=== PATIENT | female | born 1965 | race Caucasian/White ===

== ENCOUNTER 2024-06-05 13:22 | Inpatient (IN) | payer MEDICARE ==
--- NOTE | 2024-06-05 16:03 | ED ---
General Adult HPI - General Chief complaint: Psychiatric Symptoms Stated complaint: Mental health eval Time Seen by Provider: 06/05/24 16:01 Source: patient Mode of arrival: ambulatory Limitations: no limitations - History of Present Illness Initial comments: Dictation was produced using [employer] dictation software. please excuse any grammatical, word or spelling errors. Chief Complaint: 58-year-old female presents to the emergency department depression and suicidal ideation History of Present Illness: Patient is 58-year-old female has had history of depression. States that she has been having a lot of changes to her depression treatment. States that she feels like she is steadily getting worse causing her to contemplate suicide. She denies any specific plan denies any homicidal ideation. No visual auditory hallucination. Denies any feelings of paranoia. Patient denies any physical complaints at this time The ROS documented in this emergency department record has been reviewed and confirmed by me. Those systems with pertinent positive or negative responses have been documented in the HPI. All other systems are other negative and/or noncontributory. - Related Data Home Medications Medication Instructions Recorded Confirmed Ibuprofen [Motrin Ib] 800 mg PO Q8H PRN 06/05/24 06/05/24 buPROPion XL [Wellbutrin XL] 150 mg PO DAILY 06/05/24 06/05/24 Allergies Allergy/AdvReac Type Severity Reaction Status Date / Time Sulfa (Sulfonamide Allergy Rash/Hives Verified 06/05/24 19:11 Antibiotics) Review of Systems ROS Statement: Those systems with pertinent positive or pertinent negative responses have been documented in the HPI. ROS Other: All systems not noted in ROS Statement are negative. Past Medical History Past Medical History: Rheumatoid Arthritis (RA) History of Any Multi-Drug Resistant Organisms: None Reported Past Surgical History: No Surgical Hx Reported Past Psychological History: Anxiety, Depression Smoking Status: Never smoker Past Alcohol Use History: None Reported Past Drug Use History: None Reported General Exam - General Exam Comments Initial Comments: General: Well-appearing, nontoxic, no acute distress. Head: Normocephalic, atraumatic Eyes: PERRLA, EOMI ENT: Airway patent Chest: Nonlabored breathing Skin: No visual rash, normal skin tone Neuro: Alert and oriented 3 Musculoskeletal: No gross abnormalities Limitations: no limitations Course Vital Signs 06/05/24 13:29 Temperature 98.2 F Pulse Rate 99 Respiratory 20 Rate Blood Pressure 156/103 O2 Sat by Pulse 96 Oximetry Medical Decision Making - Medical Decision Making Was pt. sent in by a medical professional or institution (, PA, SENIOR QUALITY CONTROL INSPECTOR, urgent care, hospital, or [facility]...) When possible be specific @ -No Did you speak to anyone other than the patient for history (EMS, parent, family, police, friend...)? What history was obtained from this source @ -No Did you review nursing and triage notes (agree or disagree)? Why? @ -I reviewed and agree with nursing and triage notes Were old charts reviewed (outside hosp., previous admission, EMS record, old EKG, old radiological studies, urgent care reports/EKG's, [facility] records)? Report findings @ -No old charts were reviewed Differential Diagnosis (chest pain, altered mental status, abdominal pain women, abdominal pain men, vaginal bleeding, musculoskeletal, weakness, fever, dyspnea, syncope, headache, dizziness, GI bleed, back pain, seizure, CVA, palpatations, mental health)? @ -Differential Mental Health: Depression, anxiety, bipolar, psychosis, schizophrenia, borderline personality, situational depression, adjustment disorder, behavioral disorder, brain tumor, malingering, substance abuse, encephalopathy, medication reaction, dementia, hypothyroidism, degenerative neurologic disorder, lupus.... This is not meant to be all-inclusive list EKG interpreted by me (3pts min.). @ -None done X-rays interpreted by me (1pt min.). @ -None done CT interpreted by me (1pt min.). @ -None done U/S interpreted by me (1pt. min.). @ -None done What testing was considered but not performed or refused? (CT, X-rays, U/S, labs)? Why? @ -None What meds were considered but not given or refused? Why? @ -None Was smoking cessation discussed for >3mins.? @ -No Were there social determinants of health that impacted care today? How? (Homelessness, low income, unemployed, alcoholism, drug addiction, transportation, low edu. Level, literacy, decrease access to med. care, group home, rehab)? @ -No Was there de-escalation of care discussed even if they declined (Discuss DNR or withdrawal of care, Hospice)? DNR status @ -No What co-morbidities impacted this encounter? (DM, HTN, Smoking, COPD, CAD, Cancer, CVA, ARF, Chemo, Hep., AIDS, mental health diagnosis, sleep apnea, morbid obesity)? @ -None Was patient admitted / discharged? Hospital course, mention meds given and route, prescriptions, significant lab abnormalities, going to OR and other pertinent info. @ -58-year-old female with suicidal ideation and depression. Vital signs stable. Physical examination is benign. Patient medically for EPS evaluation. EPS evaluated patient recommended inpatient psychiatric admission. Did you discuss the management of the patient with other professionals (professionals i.e. , PA, SENIOR QUALITY CONTROL INSPECTOR, lab, RT, psych nurse, social sciences instructor, advanced practice nurse psychotherapist, teacher, humane officer, director of casework department)? Give summary @ -See above Was critical care preformed (if so, how long)? @ -No Undiagnosed new problem with uncertain prognosis? @ -No Drug Therapy requiring intensive monitoring for toxicity (Heparin, Nitro, Insulin, Cardizem)? @ -No Were any procedures done? @ -No Diagnosis/symptom? Acute, or Chronic, or Acute on Chronic? Uncomplicated (without systemic symptoms) or Complicated (systemic symptoms)? @ -Suicidal ideation Side effects of treatment? @ -No Exacerbation, Progression, or Severe Exacerbation? @ -No Poses a threat to life or bodily function? How? (Chest pain, USA, PA, pneumonia, PE, COPD, DKA, ARF, appy, cholecystitis, CVA, Diverticulitis, Homicidal, Suicidal, threat to staff... and all critical care pts) @ -yes Disposition Clinical Impression: Suicidal ideation Disposition: TRANSFER TO PSYCH HOSP/UNIT Condition: Fair Referrals: Nonstaff,Physician [Primary Care Provider] - 1-2 days Decision Time: 19:52
[2024-06-05] MEDS ORDERED: LORazepam 2 MG/ML INJ IM PRN (21:44)
[2024-06-05] MEDS ORDERED: MAGNESIUM HYDROXIDE 2,400 MG/30 ML CUP PO PRN (21:44)
[2024-06-05] MEDS ORDERED: LORazepam 1 MG TAB PO PRN (21:44)
[2024-06-05] MEDS ORDERED: ACETAMINOPHEN TAB 325 MG TAB PO PRN (21:44)
[2024-06-05] MEDS ORDERED: MAG HYDROX/AL HYDROX/SIMETH 355 ML BOTTLE PO PRN (21:44)
[2024-06-05] MEDS ORDERED: haloperidoL 5 MG TAB PO PRN (21:44)
[2024-06-05] MEDS ORDERED: HALOPERIDOL LACTATE 5 MG/ML 1 ML VIAL IM PRN (21:44)
[2024-06-05] MEDS: IBUPROFEN 200 MG TAB PO PRN (23:38)
[2024-06-05 23:58] VITALS: RESP 16
[2024-06-06] MEDS ORDERED: ARTIFICIAL TEARS-HYPROMELLOSE DROPS 15 ML BTL BOTH EYES PRN (01:00)
[2024-06-06] MEDS: buPROPion XL 150 MG TAB.ER.24H PO SCH (08:57)
[2024-06-06] MEDS ORDERED: NICOTINE 14MG/24HR PATCH TRANSDERM SCH (09:00)
[2024-06-06 10:09] LABS: Basophils % (A) 1 %; Eosinophils % (A) 0 %; HCT 41.5 % (34.0-46.0); HGB 13.5 gm/dL (11.4-16.0); Lymphocytes # (A) 1.8 k/uL (1.0-4.8); Lymphocytes % (A) 34 %; MCH 27.6 pg (25.0-35.0); MCHC 32.5 g/dL (31.0-37.0); Mean Platelet Volume 7.6; Monocytes # (A) 0.3 k/uL (0-1.0); Monocytes % (A) 6 %; Neutrophils # (A) 3.2 k/uL (1.3-7.7); Neutrophils % (A) 58 %; Platelet Count 240 k/uL (150-450); RBC 4.88 m/uL (3.80-5.40); RDW 12.7 % (11.5-15.5); WBC 5.5 k/uL (3.8-10.6)
[2024-06-06 10:21] LABS: African American GFR (CKD) 57 (>60 ml/min/1.73 sqM); Anion Gap 9 mmol/L; Blood Urea Nitrogen 19 mg/dL (7-17); Carbon Dioxide 30 mmol/L (22-30); Chloride 99 mmol/L (98-107); Glucose 118 mg/dL (74-99); Potassium 4.8 mmol/L (3.5-5.1); Sodium 138 mmol/L (137-145)
[2024-06-06 10:22] LABS: ALT 15 U/L (4-34); AST 23 U/L (14-36); Albumin 4.3 g/dL (3.5-5.0); Alkaline Phosphatase 110 U/L (38-126); Bilirubin, Delta 0.1 mg/dL (0.0-0.2); Bilirubin,Unconjugated 0.8 mg/dL (0.0-1.1); Calcium 9.9 mg/dL (8.4-10.2); Non-African American GFR(CKD) 50 (>60 ml/min/1.73 sqM); Total Bilirubin 0.9 mg/dL (0.2-1.3); Total Protein 7.2 g/dL (6.3-8.2)
[2024-06-06 12:08] LABS: Appearance,Urine Clear (Clear); Bacteria,Urine Rare /hpf; Bilirubin,Urine Negative (Negative); Blood,Urine Negative (Negative); Color,Urine Colorless; Glucose,Urine (UA) Negative (Negative); Ketones,Urine Negative (Negative); Leukocyte Esterase,Urine Moderate (Negative); Nitrite,Urine Negative (Negative); Protein,Urine Negative (Negative); Specific Gravity,Urine 1.006 (1.001-1.035); Squamous Epithelial Cell,Urine 2 /hpf (0-4); Urobilinogen,Urine <2.0 mg/dL (<2.0); WBC,Urine 15 /hpf (0-5)
[2024-06-06] MEDS: ARIPiprazole 5 MG TAB PO SCH (12:43)
[2024-06-06] MEDS: DULoxetine HCL 30 MG CAPSULE.DR PO SCH (12:43)
--- NOTE | 2024-06-06 13:49 | P.HP ---
Psychiatric H&P - . H&P Date: 06/06/24 History & Physical: Allergies Allergy/AdvReac Type Severity Reaction Status Date / Time gluten Allergy Rash/Hives Verified 06/05/24 23:48 Sulfa (Sulfonamide Allergy Rash/Hives Verified 06/05/24 19:11 Antibiotics) Vital Signs Temp 97.6 F 06/06/24 07:01 Pulse 82 06/06/24 07:01 Resp 16 06/05/24 22:29 BP 138/79 06/06/24 07:01 Pulse Ox 99 06/06/24 07:01 FiO2 Intake & Output 06/05/24 06/06/24 06/06/24 18:59 06:59 18:59 Weight 117.934 kg 118.444 kg Laboratory Last Values WBC 5.5 k/uL (3.8-10.6) 06/06/24 08:52 RBC 4.88 m/uL (3.80-5.40) 06/06/24 08:52 Hgb 13.5 gm/dL (11.4-16.0) 06/06/24 08:52 Hct 41.5 % (34.0-46.0) 06/06/24 08:52 MCV 85.0 fL (80.0-100.0) 06/06/24 08:52 MCH 27.6 pg (25.0-35.0) 06/06/24 08:52 MCHC 32.5 g/dL (31.0-37.0) 06/06/24 08:52 RDW 12.7 % (11.5-15.5) 06/06/24 08:52 Plt Count 240 k/uL (150-450) 06/06/24 08:52 MPV 7.6 06/06/24 08:52 Neutrophils % 58 % 06/06/24 08:52 Lymphocytes % 34 % 06/06/24 08:52 Monocytes % 6 % 06/06/24 08:52 Eosinophils % 0 % 06/06/24 08:52 Basophils % 1 % 06/06/24 08:52 Neutrophils # 3.2 k/uL (1.3-7.7) 06/06/24 08:52 Lymphocytes # 1.8 k/uL (1.0-4.8) 06/06/24 08:52 Monocytes # 0.3 k/uL (0-1.0) 06/06/24 08:52 Eosinophils # 0.0 k/uL (0-0.7) 06/06/24 08:52 Basophils # 0.0 k/uL (0-0.2) 06/06/24 08:52 Sodium 138 mmol/L (137-145) 06/06/24 08:52 Potassium 4.8 mmol/L (3.5-5.1) 06/06/24 08:52 Chloride 99 mmol/L (98-107) 06/06/24 08:52 Carbon Dioxide 30 mmol/L (22-30) 06/06/24 08:52 Anion Gap 9 mmol/L 06/06/24 08:52 BUN 19 mg/dL (7-17) H 06/06/24 08:52 Creatinine 1.21 mg/dL (0.52-1.04) H 06/06/24 08:52 Est GFR (CKD-EPI)AfAm 57 (>60 ml/min/1.73 sqM) 06/06/24 08:52 Est GFR (CKD-EPI)NonAf 50 (>60 ml/min/1.73 sqM) 06/06/24 08:52 Glucose 118 mg/dL (74-99) H 06/06/24 08:52 Calcium 9.9 mg/dL (8.4-10.2) 06/06/24 08:52 Total Bilirubin 0.9 mg/dL (0.2-1.3) 06/06/24 08:52 Conjugated Bilirubin 0.0 mg/dL (0.0-0.3) 06/06/24 08:52 Unconjugated Bilirubin 0.8 mg/dL (0.0-1.1) 06/06/24 08:52 Delta Bilirubin 0.1 mg/dL (0.0-0.2) 06/06/24 08:52 AST 23 U/L (14-36) 06/06/24 08:52 ALT 15 U/L (4-34) 06/06/24 08:52 Alkaline Phosphatase 110 U/L (38-126) 06/06/24 08:52 Total Protein 7.2 g/dL (6.3-8.2) 06/06/24 08:52 Albumin 4.3 g/dL (3.5-5.0) 06/06/24 08:52 TSH 2.520 mIU/L (0.465-4.680) 06/06/24 08:52 SARS-CoV-2 (PCR) Not Detected (Not Detectd) 06/05/24 19:32 06/06/24 12:07 IDENTIFYING DATA: Patient is a 58-year-old female, she is currently has no kids, she collects Social Security disability, currently lives with her mother in a house. HPI: Patient presented to the hospital yesterday for psychiatric evaluation, she was evaluated by EPS and according to note "Patient brought self to ED related to suicidal ideation without a plan. Patient assessed in ER10 from [id number]. Patient verbalizs she was talking to her [facility] worker and expressed suicidal ideation without a specific plan currently. Patient states that she has a good support system she can talk to and when she is feeling down or suicidal she will talk to them and feel better. Patient states despite utilizing her coping skills and resources she continuously has been feeling down, depressed, and suicidal. Patient denies a specific plan but states that she is continuously thinking about a plan, and states she wants to make sure her plan will work before attempting because "I will not fail". Patient verbalizes she has been unable to participate in any of her usual activities and does not find sangita in things she normally would enjoy. Patient verbalizes that she usually enjoys reading and writing, going for walks, and playing board or card games." Patient was seen today agreeable to speak to field underwriter in the office. States that she has been feeling "severely depressed" for 11 years now since she had a "mental breakd own". Claims that she has been having on and off suicidal thoughts however they are becoming more frequent at this time. Does not describe a particular plan however states that "I am working up to 1". States that she has had a long and different trials of different medications and different SSRIs in the past however feels that she has not had much help and improvement with them. States that she was on Effexor for quite some time and has been off it for about a year. Claims that she transition into doing TMS treatment in [place] and also [place] in February in the fall time however was not able to afford it any longer and stopped going. Claims that she has been getting worse since then. States that she has been doing weekly therapy at [facility] however it is not helping much. States that she is currently on Wellbutrin however is not helping, denies any history of manic episodes. Claims that she is dealing with anxiety as well. Claims that her sleep is about 4 hours poor sleep. Claims that her appetite is fair.. Patient denies any homicidal ideations intent or plan. Still claiming that she is having on and off suicidal thoughts no specific plan. At this time patient denies any auditory or visual hallucinations. Patient denies any flight of ideas racing thoughts and increased in goal directed behavior. Patient admits to using no recreational substances and no cigarettes. PAST PSYCHIATRIC HISTORY: Patient has a history of depression anxiety and suicidal thoughts. Patient has been on several different antidepressants in the past, currently on Wellbutrin 150 mg daily, was previously on Effexor Paxil Zoloft Celexa trazodone and Ativan. Patient denies any previous psychiatric hospitalizations. Claims that she currently follows up with a nurse practitioner at [facility], does weekly therapy as well at [facility]. Patient denies any history of suicide attempts in the past however she does have a history of self harm and cutting. PMH: as per ER note ALLERGIES: as per EMR CHEMICAL DEPENDENCY HISTORY: as per HPI FAMILY PSYCHIATRIC/SUBSTANCE USE HISTORY: Claims that her mother has "undiagnosed bipolar" and also believes that her brother has OCD SOCIAL HISTORY: Patient was born and raised in [place], moved to [place] in 2018. Currently lives with her mother in a house, she is , has no kids. She collect Social Security disability. 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 Claims that she does not have any legal history. MENTAL STATUS EXAM: General Appearance: Patient appears to be overweight, stated age is alert, directable, and attempts to cooperate. Patient appears to have fair hygiene and grooming. Poor eye contact Behavior: Patient is seated without any agitated behavior. Attempts to cooperate Speech: Patient's speech is fluent and nonpressured. Monotone Mood/Affect: Patient reports their mood is depressed and anxious, affect is congruent and constricted. Suicidality/Homicidality: Patient denies having any homicidal ideation intent or plan. Admits to suicidal thoughts, no specific plan or intent Perceptions: Patient denies any visual hallucinations and denies any auditory hallucinations Though content/process: There is no evidence of any delusional thought content and thought process is linear and goal-directed. Perseverating on her depressive symptoms and history. Nursing hopelessness Memory and concentration: AOX3, grossly intact for the purposes of this session. Can spell "WORLD" backwards Judgment and insight: Poor STRENGTHS/WEAKNESSES: strength is that patient is resilient. Weakness is that patient has poor judgment and has tried several different medications and has failed INTELLECT: Average IMPRESSIONS: Suicidal ideations Depressive disorder, severe without psychotic symptoms Anxiety disorder unspecified Personality disorder unspecified PLAN: -Patient is admitted under voluntary status to MHU for stabilization of psychiatric symptoms and safety. Patient has signed adult voluntary form and medication consent and is placed in patient's chart. -Medications : Cymbalta 30 mg daily for mood/anxiety, Abilify 2.5 mg daily for mood stabilization/mood adjunct. We spoke about other mood stabilizers which would be good options for her suicidal thoughts/depressive episodes including Lamictal, lithium, Seroquel, Depakote however patient requested to try abilify at this time -Ativan and Haldol PRN for agitation/aggression -Patient was informed of the risks, benefits and side effects of the medication and patient verbally consented to taking the medications. Patient signed med consent form and was placed in chart. -Internal Medicine consult to perform medical evaluation and physical. -NRT -not needed as patient does not smoke -SW on board for discharge planning. Encourage patient to participate in groups to work on coping skills. 06/06/24 13:48
[2024-06-06 15:28] LABS: Chol/HDL Ratio 4.53 Ratio; LDL Cholesterol,Calculated 181.1 mg/dL (0.0-131.0)
[2024-06-06 20:37] LABS: Urine Alcohol Negative (Negative); Urine Barbiturate Negative (Negative); Urine Cocaine Negative (Negative); Urine Methadone Negative (Negative); Urine Opiates Negative (Negative); Urine Phencyclidine Negative (Negative)
--- NOTE | 2024-06-07 04:56 | P.PN ---
Progress Note - Text Progress Note Date: 06/07/24 Attempted to see the patient in the mental health unit at 2300 on 06/06. The patient refused to be seen or be evaluated.
--- NOTE | 2024-06-07 11:48 | P.PN ---
Progress Note - Text Progress Note Date: 06/07/24 Interval History: Patient was seen today for psychiatric follow up. she was in activity group to day interacting well with others. Patient states that she feels a bit better today, claims that the anxiety level has been improving mildly. States that he has been finding benefit in groups and also talking with other patients on the unit helping him through things. States that she was feeling a little bit nauseous with the Cymbalta yesterday and also a bit today, we reviewed the side effects of the medications. She also states that she is feeling a little bit tired today, was agreeable to try the Abilify at nighttime instead. Claims that she feels optimistic about the medications at this time, has a poor appetite at this time however it is improving. Claims that she slept through the night pretty well. Denies any suicidal homicidal ideations intent or plan. Denies any auditory or visual hallucinations. Has been taking the medications MENTAL STATUS EXAM: General Appearance: Patient appears to be overweight, stated age is alert, directable, and attempts to cooperate. Patient appears to have fair hygiene and grooming. Poor eye contact Behavior: Patient is seated without any agitated behavior. Attempts to cooperate Speech: Patient's speech is fluent and nonpressured. Monotone, concrete Mood/Affect: Patient reports their mood is anxious, improving mildly, affect is congruent and constricted. Improving mildly Suicidality/Homicidality: Patient denies having any homicidal ideation intent or plan. Denies any suicidal thoughts, no plan or intent Perceptions: Patient denies any visual hallucinations and denies any auditory hallucinations Though content/process: There is no evidence of any delusional thought content and thought process is linear and goal-directed. Memory and concentration: AOX3, grossly intact for the purposes of this session Judgment and insight: Poor, improving mildly IMPRESSIONS: Suicidal ideations Depressive disorder, severe without psychotic symptoms Anxiety disorder unspecified Personality disorder unspecified PLAN: -Patient is admitted under voluntary status to MHU for stabilization of psychiatric symptoms and safety. Patient has signed adult voluntary form and medication consent and is placed in patient's chart. -Medications : Cymbalta 30 mg daily for mood/anxiety, change Abilify 2.5 mg hs for mood stabilization/mood adjunct with plan to increase to 5 mg qhs starting tomorrow night -Ativan and Haldol PRN for agitation/aggression -NRT -not needed as patient does not smoke -SW on board for discharge planning. Encourage patient to participate in groups to work on coping skills. hopeful for discharge early next week if patient is improving.
[2024-06-07] MEDS: ARIPiprazole 5 MG TAB PO ONE (20:35)
--- NOTE | 2024-06-07 21:18 | P.HPMEDMHU ---
History of Present Illness H&P Date: 06/07/24 Patient is a 58-year-old female with past medical history of depression presented to the ED with suicidal ideation. She is currently in the mental health unit. [facility] physicians consulted for medical management. Patient endorses that her head feels funny, but that she is adjusting to the medication. She also endorses that she has not had a bowel movement for the last 3 days and requesting stool softener. Additionally she would like to resume vitamin D and vitamin D supplements. She denies any nausea, vomiting, fevers or chills, chest pain, shortness of breath, palpitations, dizziness, or urinary complaints. LABS on admission were significant for increased BUN/creatinine 19/1.21, glucose 118, cholesterol 265, LDL 181. UA showed mild leukocyte esterase and WBCs. Pertinent positives and negatives as discussed in HPI, a complete review of systems was performed and all other systems are negative. Patient seen and examined at bedside. Physical examination: Vital signs reviewed General: nontoxic, no distress, appears at stated age Derm: warm, dry, intact Head: atraumatic, normocephalic, symmetric Eyes: anicteric sclera Mouth: no lip lesion, mucus membranes moist Cardiovascular: S1 S2 reg, no murmur Lungs: CTA bilateral, no rhonchi, no rales, no accessory muscle use Abdominal: soft, non-tender to palpation, nondistended Extremities: No cyanosis, clubbing, or pedal edema. Neuro: Alert, Oriented to person, time and place, Gross neurological examination did not reveal any focal deficits. Cranial nerves II to XII grossly intact. Bilateral upper and lower extremity muscle strength intact and sensation intact. Psych: well appearing, appropriate affect Assessment/Plan: Hyperglycemia in prediabetic (A1c 5.7) Will continue to monitor Should follow-up on an outpatient basis Marginally elevated BUN/creatinine, unknown baseline Continue to monitor Hyperlipidemia, likely secondary to psychotropic medication Should follow-up on an outpatient basis Asymptomatic bacteriuria Patient not currently endorsing any urinary complaints Will hold antibiotics for now unless patient begins urinary complaints Suicidal ideations Depressive disorder, severe without psychotic symptoms Anxiety disorder unspecified Personality disorder unspecified Management per psychiatry team Thank you for this consultation. We will continue to follow. Past Medical History Past Medical History: Osteoarthritis (OA), Sleep Apnea/CPAP/BIPAP Additional Past Medical History / Comment(s): Sleep apnea with CPAP, OA in most joints, TMJ (uses mouthguard) History of Any Multi-Drug Resistant Organisms: None Reported Past Surgical History: No Surgical Hx Reported Additional Past Surgical History / Comment(s): Bunion removal with plate on R Foot Past Anesthesia/Blood Transfusion Reactions: No Reported Reaction Smoking Status: Never smoker - Past Family History Mother History Unknown: Yes Medications and Allergies Home Medications Medication Instructions Recorded Confirmed Type Ibuprofen [Motrin Ib] 800 mg PO Q8H PRN 06/05/24 06/05/24 History ARIPiprazole [Abilify] 2.5 mg PO HS 30 Days #15 tab 06/11/24 Rx Cholecalciferol [Vitamin D3 (10 10 mcg PO DAILY tab 06/11/24 Rx Mcg = 400 Iu)] DULoxetine HCL [Cymbalta] 30 mg PO HS 30 Days #30 cap 06/11/24 Rx Vitamin E (Dl,Tocopheryl Acet) 400 unit PO DAILY cap 06/11/24 Rx [Vitamin E (400 Iu = 180 mg)] bisacodyL [Dulcolax] 5 mg PO DAILY PRN tab 06/11/24 Rx Allergies Allergy/AdvReac Type Severity Reaction Status Date / Time gluten Allergy Rash/Hives Verified 06/05/24 23:48 Sulfa (Sulfonamide Allergy Rash/Hives Verified 06/05/24 19:11 Antibiotics) Physical Exam Vitals: Vital Signs Pulse BP 06/07/24 07:02 77 134/93 Results CBC & Chem 7: 06/06/24 08:52 06/08/24 07:06 Thrombosis Risk Factor Assmnt - Choose All That Apply Any of the Below Risk Factors Present?: Yes Each Factor Represents 1 point: Age 41-60 years, Obesity (BMI >25) Other Risk Factors: No Other congenital or acquired thrombophilia - If yes, enter type in comment: No Thrombosis Risk Factor Assessment Total Risk Factor Score: 2 Thrombosis Risk Factor Assessment Level: Low Risk
[2024-06-08 07:39] LABS: African American GFR (CKD) 59 (>60 ml/min/1.73 sqM); Anion Gap 11 mmol/L; Blood Urea Nitrogen 22 mg/dL (7-17); Calcium 9.5 mg/dL (8.4-10.2); Carbon Dioxide 25 mmol/L (22-30); Chloride 101 mmol/L (98-107); Glucose 106 mg/dL (74-99); Non-African American GFR(CKD) 52 (>60 ml/min/1.73 sqM); Potassium 4.6 mmol/L (3.5-5.1); Sodium 137 mmol/L (137-145)
[2024-06-08] MEDS: CHOLECALCIFEROL 10 MCG (400 IU) TABLET PO SCH (08:31)
[2024-06-08] MEDS: VITAMIN E (DL,TOCOPHERYL ACET) 400 UNIT (180 MG) CAP PO SCH (08:31)
[2024-06-08] MEDS: bisacodyL 5 MG TABLET.DR PO PRN (08:56)
--- NOTE | 2024-06-08 11:36 | P.PN ---
Progress Note - Text Progress Note Date: 06/08/24 Interval History: Patient was seen today for psychiatric follow up. she was in activity group to day, playing cards with another patient. Claims that she is feeling a "mental fog" and states that she still is feeling severely depressed. Claims that she feels that she would not be safe for discharge today and continues to feel "hopeless and worthless". States that she is trying to communicate more about her feelings and also the fleeting thoughts of suicide that she is still having. She is not endorsing a specific plan. We did speak more about her medications and adjusting and she believes that she is very "sensitive" to medications. She feels fairly tired during the day since this morning, was agreeable to have her Abilify decreased a bit tonight. Also to switch the Cymbalta to nighttime. Claims that she feels optimistic about the medications at this time, has a poor appetite at this time however it is improving. Denies any homicidal ideations intent or plan. Denies any auditory or visual hallucinations. Has been taking the medications MENTAL STATUS EXAM: General Appearance: Patient appears to be overweight, stated age is alert, directable, and attempts to cooperate. Patient appears to have fair hygiene and grooming. Mildly improving eye contact Behavior: Patient is seated without any agitated behavior. Attempts to cooperate Speech: Patient's speech is fluent and nonpressured. Monotone, concrete Mood/Affect: Patient reports their mood is depressed and worthless, improving mildly, affect is congruent and constricted. Improving mildly Suicidality/Homicidality: Patient denies having any homicidal ideation intent or plan. Admits to having fleeting suicidal thoughts, no specific plan or intent Perceptions: Patient denies any visual hallucinations and denies any auditory hallucinations Though content/process: There is no evidence of any delusional thought content and thought process is linear and goal-directed, focused on her depression and symptoms. Memory and concentration: AOX3, grossly intact for the purposes of this session Judgment and insight: improving mildly IMPRESSIONS: Suicidal ideations Depressive disorder, severe without psychotic symptoms Anxiety disorder unspecified Personality disorder unspecified PLAN: -Patient is admitted under voluntary status to [facility]HU for stabilization of psychiatric symptoms and safety. Patient has signed adult voluntary form and medication consent and is placed in patient's chart. -Medications : change Cymbalta 30 mg qhs for mood/anxiety, decrease Abilify 2.5 mg hs for mood stabilization/mood adjunct. -Ativan and Haldol PRN for agitation/aggression -NRT -not needed as patient does not smoke -SW on board for discharge planning. Encourage patient to participate in groups to work on coping skills. hopeful for discharge early next week if patient is improving.
[2024-06-08] MEDS: ARIPiprazole 5 MG TAB PO SCH (20:39)
[2024-06-08] MEDS ORDERED: DULoxetine HCL 20 MG CAPSULE.DR PO SCH (21:00)
[2024-06-08] MEDS ORDERED: ARIPiprazole 5 MG TAB PO SCH (21:00)
--- NOTE | 2024-06-09 11:37 | P.PN ---
Progress Note - Text Progress Note Date: 06/09/24 Dictation was produced using [employer] dictation software. Please excuse any grammatical, word or spelling errors. Interval history: Patient was seen in the hallway and was directable and agreeable to speak with the commercial lines underwriter in the office for psychiatric follow-up. She was able to reflect on what brought her to the hospital, reported that she has been severely depressed for years, reported that Effexor was not working for her and she tried TMS on 03/03 for 6 weeks which she reported to be very helpful and she had no depression or anxiety at the end of the TMS course. Reported that then depression came back and she was started on Wellbutin on May 2024, she had thoughts about killing her self and was asked to go to the ED. The pt states that she is feeling better, reported that she would like to take the Cymbata at night, reported that she was sleepy when taking it in the morning, reported that depression, and anxiety are at the moderate side, she rated depression and rated at 4/10, compared to 8/10 on admission, and she rated anxiety at 3-4/10. She admitted to good sleep and reported that her appetite is improving. She denied any current suicidal or homicidal thoughts or behavior, intention or plan. She denied any current auditory or visual hallucination, paranoia or delusion. Reported that she is getting along well with everyone in the unit. Reported that she is getting out of her comfort zone and being able to talk to other people in the unit including patients and staff. She is complaint with her medication, denied any side effects. Denied any muscle stiffness, rigidity, abnormal movement, or drooling. Denied any safety concerns. MENTAL STATUS EXAM: General Appearance: Patient appears to be overweight, stated age is alert, directable, and attempts to cooperate. Patient appears to have fair hygiene and grooming. Eye contact is appropriate. Behavior: Patient is seated without any agitated behavior. Attempts to cooperate Speech: Patient's speech is fluent and nonpressured. Mood/Affect: Patient reports their mood is a little depressed and worthless, imp roving mildly, affect is congruent and constricted. Improving mildly Suicidality/Homicidality: Patient denies having any homicidal ideation intent or plan. Denied any suicidal thoughts, plan or intent Perceptions: Patient denies any visual hallucinations and denies any auditory hallucinations Though content/process: There is no evidence of any delusional thought content and thought process is linear and goal-directed, focused on her depression and symptoms. Memory and concentration: AOX3, grossly intact for the purposes of this session Judgment and insight: improving mildly IMPRESSIONS: Suicidal ideations Depressive disorder, severe without psychotic symptoms Anxiety disorder unspecified Personality disorder unspecified Assessment/Plan: Continue with current diagnosis. Patient continues to meet criteria for inpatient psychiatric admission for symptom stabilization and safety. Patient will be maintained on current psychotropic medication regimen, will continue with Cymbalta 30 mg at bedtime and Abilify 2.5 mg at bedtime which was decreased on Tuesday from 5 mg. Monitor for medication compliance and for any psychotropic medication side effects. Will continue to monitor ongoing response to treatment. Encouraged participation in milieu.
[2024-06-09] MEDS: DULoxetine HCL 30 MG CAPSULE.DR PO SCH (20:50)
--- NOTE | 2024-06-10 09:48 | P.PN ---
Progress Note - Text Progress Note Date: 06/10/24 Dictation was produced using [employer] dictation software. Please excuse any grammatical, word or spelling errors. Interval history: Patient was seen in the group and was directable and agreeable to speak with the production underwriter in the office for psychiatric follow-up. The patient states that she is feeling a little better today, reported that her sleep was restful, and feel like she is more rested. She reported depression and anxiety to be at the moderate side, she rated depression at 45/10, and anxiety at 4/10. She denied any current suicidal, self-harm or homicidal thoughts or behavior, denied auditory or visual hallucination, paranoia or delusion. She reported improvement in her appetite, reported that she has been compliant with her medication, reported that she feels much better since the medication was changed to the nighttime, and elaborates that " I believe the medication is working, I do not feel like ending my life anymore," reported that she is now thinking about the future and wanted to make some future plans like going back to school. She reported that she has stable home environment, reported that she is planning to call her mother today, reported that she has a therapy cat and has been following up with her outpatient team for [facility] for psychiatry and therapy services. She is compliant with her medication, denied any current side effects, reported that she still have constipation, she received Dulcolax today. She is getting along well with everyone in the unit, no issues of aggression or agitation reported. She is tending to her ADL. MENTAL STATUS EXAM: General Appearance: Patient appears to be overweight, stated age is alert, directable, and attempts to cooperate. Patient appears to have fair hygiene and grooming. Eye contact is appropriate. Behavior: Patient is seated without any agitated behavior. Attempts to cooperate Speech: Patient's speech is fluent and nonpressured. Mood/Affect: Patient reports their mood is "a little better," improving mildly, affect is congruent and constricted. Improving mildly Suicidality/Homicidality: Patient denies having any homicidal ideation intent or plan. Denied any suicidal thoughts, plan or intent Perceptions: Patient denies any visual hallucinations and denies any auditory hallucinations Though content/process: There is no evidence of any delusional thought content and thought process is linear and goal-directed Memory and concentration: AOX3, grossly intact for the purposes of this session Judgment and insight: improving mildly IMPRESSIONS: Suicidal ideations Depressive disorder, severe without psychotic symptoms Anxiety disorder unspecified Personality disorder unspecified Assessment/Plan: Continue with current diagnosis. Patient continues to meet criteria for inpatient psychiatric admission for symptom stabilization and safety. Patient will be maintained on current psychotropic medication regimen, will continue with Cymbalta 30 mg at bedtime and Abilify 2.5 mg at bedtime. Monitor for medication compliance and for any psychotropic medication side effects. Will continue to monitor ongoing response to treatment. Encouraged participation in milieu.
[2024-06-10 19:15] LABS: Influenza A Not Detected (Not Detectd); Influenza B Not Detected (Not Detectd); RSV Not Detected (Not Detectd)
[2024-06-11 06:56] VITALS: BP 133/86; PULSE 91; TEMP 98.1
--- NOTE | 2024-06-11 11:14 | P.DS ---
Providers Date of admission: 06/05/24 21:39 Expected date of discharge: 06/11/24 Attending physician: Jamey Birmingham MD Consults: 06/05/24 21:44 Consult Physician Routine Consulting Provider: Martinez Degroot Consult Reason/Comments: H & P Do you want consulting provider notified?: Already Contacted Primary care physician: Physician Nonstaff - Discharge Diagnosis(es) (1) Suicidal ideations Current Visit: Yes Status: Acute Priority: High (2) Major depressive disorder without psychotic features Current Visit: Yes Status: Acute Priority: High (3) Anxiety disorder Current Visit: Yes Status: Acute Priority: Medium Hospital Course: Admission HPI: Admission note was completed by leader writer "patient is a 58-year-old female, she is currently has no kids, she collects Social Security disability, currently lives with her mother in a house. Patient presented to the hospital yesterday for psychiatric evaluation, she was evaluated by EPS and according to note "Patient brought self to ED related to suicidal ideation without a plan. Patient assessed in ER10 from [id number]. Patient verbalizs she was talking to her [facility] worker and expressed suicidal ideation without a specific plan currently. Patient states that she has a good support system she can talk to and when she is feeling down or suicidal she will talk to them and feel better. Patient states despite utilizing her coping skills and resources she continuously has been feeling down, depressed, and suicidal. Patient denies a specific plan but states that she is continuously thinking about a plan, and states she wants to make sure her plan will work before attempting because "I will not fail". Patient verbalizes she has been unable to participate in any of her usual activities and does not find sangita in things she normally would enjoy. Patient verbalizes that she usually enjoys reading and writing, going for walks, and playing board or card games." Patient was seen today agreeable to speak to leader writer in the office. States that she has been feeling "severely depressed" for 11 years now since she had a "mental breakdown". Claims that she has been having on and off suicidal thoughts however they are becoming more frequent at this time. Does not describe a particular plan however states that "I am working up to 1". States that she has had a long and different trials of different medications and different SSRIs in the past however feels that she has not had much help and improvement with them. States that she was on Effexor for quite some time and has been off it for about a year. Claims that she transition into doing TMS treatment in [place] and also [place] in February in the fall time however was not able to afford it any longer and stopped going. Claims that she has been getting worse since then. States that she has been doing weekly therapy at [facility] however it is not helping much. States that she is currently on Wellbutrin however is not helping, denies any history of manic episodes. Claims that she is dealing with anxiety as well. Claims that her sleep is about 4 hours poor sleep. Claims that her appetite is fair.. Patient denies any homicidal ideations intent or plan. Still claiming that she is having on and off suicidal thoughts no specific plan. At this time patient denies any auditory or visual hallucinations. Patient denies any flight of ideas racing thoughts and increased in goal directed behavior. Patient admits to using no recreational substances and no cigarettes." Hospital course: Upon admission to the unit patient was directable and agreeable to commence treatment and signed adult voluntary form. Patient got along well with other patients on the unit and followed unit protocol. Patient was compliant with the medications and denied any side effects throughout hospital course. Patient was started on Cymbalta increased to dose of 30 mg nightly for mood/anxiety, patient was also started on Abilify 2.5 mg nightly for mood stabilization/mood adjunct. Patient spoke of her stressors and engaged in therapy both group and individual. Patient was also seen by medical team for history and physical exam. Throughout the course of the hospitalization patient gradually improved with regards to mood, anxiety, suicidal thoughts, sleep and became more future oriented with improved insight and judgment. On the day of discharge patient denied any suicidal or homicidal ideations intent or plan denied any auditory or visual hallucinations. Patient endorsed wanting to live for their health, future and family. The patient denied any access to guns or weapons. Patient denied any paranoia and did not endorse any delusions. Patient does not have a significant history of substance abuse and was counseled on abstaining from all substances including alcohol and marijuana. . Patient was also counseled on the medications and need for regular compliance and was encouraged to follow-up with their outpatient appointment for mental health and also for primary care. Prior to discharge a family meeting will be arranged by manager social services to answer any questions and ensure safety upon discharge incuding making sure that guns/weapons are either removed from the home or locked away. Mental status exam: General Appearance: Patient appears to be overweight, wearing glasses, stated age is alert, pleasant, and cooperative. Patient is in no acute distress and has improved hygiene and grooming Behavior: Patient is calmly seated without any agitated behavior. Speech: Patient's speech is fluent and nonpressured. Mood/Affect: Patient reports their mood is "good", affect is congruent and euthymic. Suicidality/Homicidality: Patient denies having any suicidal or homicidal ideation intent or plan. Perceptions: Patient denies any auditory or visual hallucinations. Though content/process: There is no evidence of any delusional thought content and thought process is linear and goal-directed. More future oriented Memory and concentration: AOX3, grossly intact for the purposes of this session. Can spell "WORLD" backwards correctly. Judgment and insight: improved with guarded prognosis Impression: Suicidal ideations Major depressive disorder severe without psychotic symptoms Anxiety disorder unspecified Plan: -Continue with discharge today as patient has improved and stabilized psychiatrically and is not currently an imminent threat to themself and/or others. -Continue medications: Abilify 2.5 mg nightly for mood adjunct/mood stabilization, Cymbalta 30 mg nightly for mood/anxiety -Patient was counseled on the need for medication compliance and appropriate follow-up at mental health and also primary care for medical issues. Patient verbalized understanding and agreed. -Social work to help coordinate patients discharge today as patient will be returning back home. also to ensure safe home environment that guns/weapons are either removed from the home or locked away. Social work also to arrange for patients follow up appointments with [facility] for psychiatric care along with follow up with primary care provider. -Patient counseled on abstaining from recreational drugs and marijuana and alcohol. Was informed/educated on the adverse effects on their physical and mental health. Patient verbally agreed and understood. -Patient was instructed to return to the hospital or seek immediate medical care if their psychiatric or medical symptoms do worsen or reoccur. Allergies Allergy/AdvReac Type Severity Reaction Status Date / Time gluten Allergy Rash/Hives Verified 06/05/24 23:48 Sulfa (Sulfonamide Allergy Rash/Hives Verified 06/05/24 19:11 Antibiotics) Laboratory Results WBC 5.5 k/uL (3.8-10.6) 06/06/24 08:52 RBC 4.88 m/uL (3.80-5.40) 06/06/24 08:52 Hgb 13.5 gm/dL (11.4-16.0) 06/06/24 08:52 Hct 41.5 % (34.0-46.0) 06/06/24 08:52 MCV 85.0 fL (80.0-100.0) 06/06/24 08:52 MCH 27.6 pg (25.0-35.0) 06/06/24 08:52 MCHC 32.5 g/dL (31.0-37.0) 06/06/24 08:52 RDW 12.7 % (11.5-15.5) 06/06/24 08:52 Plt Count 240 k/uL (150-450) 06/06/24 08:52 MPV 7.6 06/06/24 08:52 Neutrophils % 58 % 06/06/24 08:52 Lymphocytes % 34 % 06/06/24 08:52 Monocytes % 6 % 06/06/24 08:52 Eosinophils % 0 % 06/06/24 08:52 Basophils % 1 % 06/06/24 08:52 Neutrophils # 3.2 k/uL (1.3-7.7) 06/06/24 08:52 Lymphocytes # 1.8 k/uL (1.0-4.8) 06/06/24 08:52 Monocytes # 0.3 k/uL (0-1.0) 06/06/24 08:52 Eosinophils # 0.0 k/uL (0-0.7) 06/06/24 08:52 Basophils # 0.0 k/uL (0-0.2) 06/06/24 08:52 Sodium 137 mmol/L (137-145) 06/08/24 07:06 Potassium 4.6 mmol/L (3.5-5.1) 06/08/24 07:06 Chloride 101 mmol/L (98-107) 06/08/24 07:06 Carbon Dioxide 25 mmol/L (22-30) 06/08/24 07:06 Anion Gap 11 mmol/L 06/08/24 07:06 BUN 22 mg/dL (7-17) H 06/08/24 07:06 Creatinine 1.17 mg/dL (0.52-1.04) H 06/08/24 07:06 Est GFR (CKD-EPI)AfAm 59 (>60 ml/min/1.73 sqM) 06/08/24 07:06 Est GFR (CKD-EPI)NonAf 52 (>60 ml/min/1.73 sqM) 06/08/24 07:06 Glucose 106 mg/dL (74-99) H 06/08/24 07:[address] Glu mg/dL 117 mg/dL 06/06/24 08:52 Hemoglobin A1c 5.7 % (<=6.0) 06/06/24 08:52 Calcium 9.5 mg/dL (8.4-10.2) 06/08/24 07:06 Total Bilirubin 0.9 mg/dL (0.2-1.3) 06/06/24 08:52 Conjugated Bilirubin 0.0 mg/dL (0.0-0.3) 06/06/24 08:52 Unconjugated Bilirubin 0.8 mg/dL (0.0-1.1) 06/06/24 08:52 Delta Bilirubin 0.1 mg/dL (0.0-0.2) 06/06/24 08:52 AST 23 U/L (14-36) 06/06/24 08:52 ALT 15 U/L (4-34) 06/06/24 08:52 Alkaline Phosphatase 110 U/L (38-126) 06/06/24 08:52 Total Protein 7.2 g/dL (6.3-8.2) 06/06/24 08:52 Albumin 4.3 g/dL (3.5-5.0) 06/06/24 08:52 Triglycerides 127.00 mg/dL (0.00-149.00) 06/06/24 08:52 Cholesterol 265.00 mg/dL (0.00-200.00) H 06/06/24 08:52 LDL Cholesterol, Calc 181.1 mg/dL (0.0-131.0) H 06/06/24 08:52 VLDL Cholesterol, Calc 25.40 mg/dL (5.00-40.00) 06/06/24 08:52 HDL Cholesterol 58.50 mg/dL (40.00-60.00) 06/06/24 08:52 Cholesterol/HDL Ratio 4.53 Ratio 06/06/24 08:52 TSH 2.520 mIU/L (0.465-4.680) 06/06/24 08:52 Urine Color Colorless 06/06/24 11:30 Urine Appearance Clear (Clear) 06/06/24 11:30 Urine pH 6.0 (5.0-8.0) 06/06/24 11:30 Ur Specific [place] 1.006 (1.001-1.035) 06/06/24 11:30 Urine Protein Negative (Negative) 06/06/24 11:30 Urine Glucose (UA) Negative (Negative) 06/06/24 11:30 Urine Ketones Negative (Negative) 06/06/24 11:30 Urine Blood Negative (Negative) 06/06/24 11:30 Urine Nitrite Negative (Negative) 06/06/24 11:30 Urine Bilirubin Negative (Negative) 06/06/24 11:30 Urine Urobilinogen <2.0 mg/dL (<2.0) 06/06/24 11:30 Ur Leukocyte Esterase Moderate (Negative) H 06/06/24 11:30 Urine WBC 15 /hpf (0-5) H 06/06/24 11:30 Ur Squamous Epith Cells 2 /hpf (0-4) 06/06/24 11:30 Urine Bacteria Rare /hpf (None) H 06/06/24 11:30 Urine Opiates Screen Negative (Negative) 06/06/24 11:30 Urine Methadone Screen Negative (Negative) 06/06/24 11:30 Ur Propoxyphene Screen Negative (Negative) 06/06/24 11:30 Urine Barbiturates Negative (Negative) 06/06/24 11:30 Ur Phencyclidine Scrn Negative (Negative) 06/06/24 11:30 Ur Amphetamine Screen Negative (Negative) 06/06/24 11:30 U Benzodiazepines Scrn Negative (Negative) 06/06/24 11:30 Urine Cocaine Screen Negative (Negative) 06/06/24 11:30 U Cannabinoids Screen Negative (Negative) 06/06/24 11:30 Urine Alcohol Negative (Negative) 06/06/24 11:30 U Creatinine Drug Scrn 41.9 mg/dL (>=20.0) 06/06/24 11:30 Influenza Type A (PCR) Not Detected (Not Detectd) 06/10/24 17:50 Influenza Type B (PCR) Not Detected (Not Detectd) 06/10/24 17:50 RSV (PCR) Not Detected (Not Detectd) 06/10/24 17:50 SARS-CoV-2 (PCR) Not Detected (Not Detectd) 06/10/24 17:50 Vital Signs Temp 98.1 F 06/11/24 06:55 Pulse 91 06/11/24 06:55 Resp 16 06/05/24 22:29 BP 133/86 06/11/24 06:55 Pulse Ox 98 06/11/24 06:55 FiO2 Intake & Output 06/10/24 06/11/24 06/11/24 18:59 06:59 18:59 Weight 119.1 kg Patient Condition at Discharge: Stable Plan - Discharge Summary Discharge Rx Participant: No New Discharge Prescriptions: New DULoxetine HCL [Cymbalta] 30 mg PO HS 30 Days #30 cap bisacodyL [Dulcolax] 5 mg PO DAILY PRN tab PRN Reason: Constipation Cholecalciferol [Vitamin D3 (10 Mcg = 400 Iu)] 10 mcg PO DAILY tab Vitamin E (Dl,Tocopheryl Acet) [Vitamin E (400 Iu = 180 mg)] 400 unit PO DAILY cap ARIPiprazole [Abilify] 2.5 mg PO HS 30 Days #15 tab Continue Ibuprofen [Motrin Ib] 800 mg PO Q8H PRN PRN Reason: Pain Discontinued buPROPion XL [Wellbutrin XL] 150 mg PO DAILY Discharge Medication List Ibuprofen [Motrin Ib] 800 mg PO Q8H PRN 06/05/24 [History] ARIPiprazole [Abilify] 2.5 mg PO HS 30 Days #15 tab 06/11/24 [Rx] Cholecalciferol [Vitamin D3 (10 Mcg = 400 Iu)] 10 mcg PO DAILY tab 06/11/24 [Rx] DULoxetine HCL [Cymbalta] 30 mg PO HS 30 Days #30 cap 06/11/24 [Rx] Vitamin E (Dl,Tocopheryl Acet) [Vitamin E (400 Iu = 180 mg)] 400 unit PO DAILY cap 06/11/24 [Rx] bisacodyL [Dulcolax] 5 mg PO DAILY PRN tab 06/11/24 [Rx] Follow up Appointment(s)/Referral(s): [facility] [Outside] - 06/12/24 9:00 am (06/12 at 9am with Cedric Kahn 06/21 at 9:30am with Tegan Castillo NP) Nonstaff,Physician [Primary Care Provider] - 1-2 days Activity/Diet/Wound Care/Special Instructions: [facility] Discharge Info Avoid the use of street drugs and alcohol. Take all medications as prescribed. When you are in need of refills on your medications, please contact your outpatient medical provider and/or outpatient psychiatrist. Please go to your scheduled outpatient appointments for aftercare treatment. If symptoms return or become worse, call the crisis line at or and/or visit the nearest emergency room for assistance. National Suicide and Crisis Lifeline - call or text 988 Discharge Disposition: HOME SELF-CARE
== END 2024-06-11 13:15 | disposition home or self-care (01) | DRG 885 ==
LOC: EC 13:22 → 3MHU 21:39
PROVIDERS: ADMIT Psychiatry & Neurology Psychiatry; ATTEND Psychiatry & Neurology Psychiatry
DX: F32.2 Major depressive disorder, single episode, severe without psychotic features (principal); R45.851 Suicidal ideations; M06.9 Rheumatoid arthritis, unspecified; F60.9 Personality disorder, unspecified; F41.9 Anxiety disorder, unspecified; E78.5 Hyperlipidemia, unspecified; R73.03 Prediabetes; K59.00 Constipation, unspecified; G47.30 Sleep apnea, unspecified; M19.90 Unspecified osteoarthritis, unspecified site; Z79.899 Other long term (current) drug therapy; Z91.52 Personal history of nonsuicidal self-harm; Z88.2 Allergy status to sulfonamides
CPT/HCPCS: 80048; 80053; 80061; 80306; 81001; 82248; 83036; 84443; 85025; 87635; 87636; 99285